=== PATIENT | male | born 1945 | race Caucasian/White ===

== ENCOUNTER 2022-08-05 23:45 | Inpatient (IN) | payer OTHER ==
[~2022-08-05] VITALS: Ht 170.2 cm; Wt 86.6 kg
[2022-08-06 00:52] LABS: HEMATOCRIT. 27.2 % (42.0-52.0); HEMOGLOBIN. 9.7 g/dL (14.0-18.0); MEAN CORPUSCULAR VOLUME 95.5 fL (80.0-94.0); MEAN PLATELET VOLUME 7.1 fl (7.4-10.4); PLATELET 409 x1000/uL (130-400); RED BLOOD CELL COUNT 2.85 mill/uL (4.7-6.1); RED CELL DISTRIBUTION WIDTH 13.1 % (11.6-14.6)
[2022-08-06 01:02] LABS: CHLORIDE 91 mEq/L (98-107)
[2022-08-06] MEDS ORDERED: KCL 20MEQ/100ML X 2 FOR TOTAL KCL 40MEQ/200ML IV SCH (01:45)
[2022-08-06] MEDS ORDERED: POTASSIUM CHLORIDE INJ 40 MEQ in DEXT 5% WATER 250 ML IV ONE (01:45)
[2022-08-06 01:49] LABS: PLATELET ESTIMATE SLIGHTLY INCREASED
[2022-08-06] MEDS: KCL 20MEQ/100ML X 2 FOR TOTAL KCL 40MEQ/200ML IV SCH ×2 (09:02→11:21)
[2022-08-06 15:15] VITALS: BP 138/60
[2022-08-06] MEDS ORDERED: ONDANSETRON HCL 4MG/2ML INJ IV PRN (17:15)
[2022-08-06] MEDS ORDERED: ACETAMINOPHEN 325MG TABLET PO PRN (17:15)
[2022-08-06 20:00] VITALS: BP 90/53
[2022-08-07] VITALS: BP 129/28
[2022-08-07 04:00] VITALS: BP 123/42
[2022-08-07 08:00] VITALS: BP 106/44
[2022-08-07 12:00] VITALS: BP 114/48
[2022-08-07] MEDS: SODIUM CHLORIDE 0.9% 1,000 ML IV SCH (14:15)
[2022-08-07 16:00] VITALS: BP 114/54
[2022-08-07 21:50] LABS: CLARITY URINE CLEAR (CLEAR); COLOR URINE YELLOW (YELLOW); KETONES URINE NEGATIVE (NEGATIVE); LEUKOCYTE ESTERASE URINE TRACE (NEGATIVE); NITRITE URINE NEGATIVE (NEGATIVE); OCCULT BLOOD URINE TRACE (NEGATIVE); PROTEIN URINE NEGATIVE (NEGATIVE); SPECIFIC GRAVITY URINE 1.007 (1.005-1.030); UROBILINOGEN URINE 0.2 E.U./dL (0.2-1.0)
[2022-08-08 07:58] LABS: BASOPHILS % 1.4 % (0.0-2.0); EOSINOPHILS % 4.7 % (0.0-5.0); HEMATOCRIT. 23.9 % (42.0-52.0); HEMOGLOBIN. 8.2 g/dL (14.0-18.0); LYMPHOCYTES % 10.4 % (20.0-50.0); MEAN CORPUSCULAR HEMOGLOBIN 33.1 pg (28.0-32.0); MEAN CORPUSCULAR VOLUME 96.3 fL (80.0-94.0); MEAN PLATELET VOLUME 7.7 fl (7.4-10.4); MONOCYTES % 12.7 % (2.0-8.0); NEUTROPHILS % 70.8 % (40.0-76.0); PLATELET 260 x1000/uL (130-400); RED BLOOD CELL COUNT 2.48 mill/uL (4.7-6.1); RED CELL DISTRIBUTION WIDTH 13.1 % (11.6-14.6)
[2022-08-08 08:00] VITALS: BP 125/50
[2022-08-08] MEDS: KCL 20MEQ/100ML X 2 FOR TOTAL KCL 40MEQ/200ML IV SCH ×2 (10:41→12:32)
[2022-08-08] MEDS: SODIUM CHLORIDE 0.9% 1,000 ML IV SCH (10:41)
[2022-08-08 10:44] LABS: PHOSPHORUS 4.6 mg/dL (2.5-4.9)
[2022-08-08] MEDS ORDERED: POTASSIUM CHLORIDE INJ 40 MEQ in DEXT 5% WATER 250 ML IV ONE (11:00)
[2022-08-08 12:00] VITALS: BP 115/60
[2022-08-08 16:00] VITALS: BP 127/61
[2022-08-08 20:00] VITALS: BP 127/48
[2022-08-08] MEDS: EPOETIN ALFA-EPBX 4,000 UNIT/ML VIAL SUBCUT SCH (20:58)
[2022-08-09] VITALS: BP 126/55
[2022-08-09] MEDS: SODIUM CHLORIDE 0.9% 1,000 ML IV SCH ×2 (03:50→19:45)
[2022-08-09 04:00] VITALS: BP 134/62
[2022-08-09 06:53] LABS: BASOPHILS % 1.2 % (0.0-2.0); EOSINOPHILS % 5.4 % (0.0-5.0); HEMOGLOBIN. 8.1 g/dL (14.0-18.0); LYMPHOCYTES % 12.1 % (20.0-50.0); MEAN CORPUSCULAR HEMOGLOBIN 33.9 pg (28.0-32.0); MEAN CORPUSCULAR VOLUME 96.4 fL (80.0-94.0); MONOCYTES % 13.2 % (2.0-8.0); NEUTROPHILS % 68.1 % (40.0-76.0); PLATELET 262 x1000/uL (130-400); RED BLOOD CELL COUNT 2.38 mill/uL (4.7-6.1); RED CELL DISTRIBUTION WIDTH 12.9 % (11.6-14.6)
[2022-08-09 07:13] LABS: PHOSPHORUS 3.6 mg/dL (2.5-4.9)
[2022-08-09 08:00] VITALS: BP 146/40
[2022-08-09] MEDS ORDERED: POTASSIUM CHLORIDE 20MEQ TABLET SR PO NR (09:15)
[2022-08-09 12:00] VITALS: BP 129/65
[2022-08-09 16:00] VITALS: BP 125/72
[2022-08-09 20:00] VITALS: BP 121/45
[2022-08-10] VITALS: BP 134/62
[2022-08-10 04:00] VITALS: BP 137/64
[2022-08-10 08:00] VITALS: BP 132/64
[2022-08-10 12:00] VITALS: BP 118/58
[2022-08-10 16:00] VITALS: BP 144/61
[2022-08-10] MEDS: SODIUM CHLORIDE 0.9% 1,000 ML IV SCH (18:15)
[2022-08-10 20:00] VITALS: BP 130/62
[2022-08-11] VITALS (8 sets, daily range): BP systolic 125–143; BP diastolic 53–66
[2022-08-11 09:08] LABS: ANTI-NUCLEAR ANTIBODIES DIRECT Negative (Negative)
[2022-08-11 11:40] LABS: BASOPHILS % 1.7 % (0.0-2.0); EOSINOPHILS % 6.5 % (0.0-5.0); HEMATOCRIT. 26.1 % (42.0-52.0); LYMPHOCYTES % 13.1 % (20.0-50.0); MEAN CORPUSCULAR HEMOGLOBIN 33.4 pg (28.0-32.0); MEAN CORPUSCULAR VOLUME 96.6 fL (80.0-94.0); MEAN PLATELET VOLUME 7.2 fl (7.4-10.4); MONOCYTES % 11.7 % (2.0-8.0); PLATELET 284 x1000/uL (130-400); RED BLOOD CELL COUNT 2.71 mill/uL (4.7-6.1); RED CELL DISTRIBUTION WIDTH 12.9 % (11.6-14.6)
[2022-08-11 11:47] LABS: INR 1.1; PARTIAL THROMBOPLASTIN TIME 25.4 sec (23.4-31.0); PROTHROMBIN TIME 11.7 sec (9.6-11.0)
[2022-08-11] MEDS ORDERED: IODIXANOL 320MG/ML 100 ML BOTTLE IV ONE (11:52)
[2022-08-11] MEDS ORDERED: LIDOCAINE HCL 1% 50ML VIAL (10MG/ML) ONE (11:52)
[2022-08-11] MEDS ORDERED: GENTAMICIN/NS IRRIGATION 500 ML IR ONE (12:01)
[2022-08-11] MEDS ORDERED: GENTAMICIN SULF 40MG/ML 2ML VIAL ONE (12:01)
[2022-08-11] MEDS: SODIUM CHLORIDE 0.9% 1,000 ML IV SCH (13:07)
[2022-08-11] MEDS ORDERED: PROPOFOL 10MG/ML 100ML 200 ML IV ONE (13:40)
[2022-08-11] MEDS ORDERED: FENTANYL CITRATE/PF 50MCG/ML 2ML VIAL ONE (14:11)
[2022-08-11] MEDS ORDERED: MIDAZOLAM HCL 2 MG/2 ML VIAL ONE (14:11)
[2022-08-11] MEDS ORDERED: LIDOCAINE HCL 2% 5ML SYRINGE IV ONE (14:27)
[2022-08-11] MEDS ORDERED: CEFAZOLIN SODIUM 1000MG/VIAL ONE ×2 (14:51)
[2022-08-11] MEDS ORDERED: GLYCOPYRROLATE 0.2 MG/ML 2ML VIAL ONE (14:52)
[2022-08-11] MEDS ORDERED: HYDROCODONE/ACETAMINOPHEN 5/325MG TABLET PO PRN (16:45)
[2022-08-11] MEDS ORDERED: NALOXONE HCL 0.4MG/ML VIAL IV PRN (17:00)
[2022-08-11] MEDS: EPOETIN ALFA-EPBX 4,000 UNIT/ML VIAL SUBCUT SCH (20:19)
[2022-08-12 00:05] VITALS: BP 122/51
[2022-08-12 04:00] VITALS: BP 134/56
[2022-08-12] MEDS: SODIUM CHLORIDE 0.9% 1,000 ML IV SCH (06:44)
[2022-08-12 07:06] LABS: HEMATOCRIT. 27.8 % (42.0-52.0); HEMOGLOBIN. 9.4 g/dL (14.0-18.0); MEAN CORPUSCULAR HEMOGLOBIN 31.5 pg (28.0-32.0); MEAN CORPUSCULAR VOLUME 93.2 fL (80.0-94.0); MEAN PLATELET VOLUME 7.4 fl (7.4-10.4); PLATELET 225 x1000/uL (130-400); RED BLOOD CELL COUNT 2.98 mill/uL (4.7-6.1); RED CELL DISTRIBUTION WIDTH 16.3 % (11.6-14.6)
[2022-08-12 08:00] VITALS: BP 138/69
[2022-08-12] MEDS ORDERED: POTASSIUM CHLORIDE 20MEQ TABLET SR PO SCH (09:30)
[2022-08-12 10:29] LABS: PLATELET ESTIMATE NORMAL
[2022-08-12 12:00] VITALS: BP 123/59
[2022-08-12 16:00] VITALS: BP 128/59
[2022-08-12 20:02] VITALS: BP 122/74
[2022-08-13 00:05] VITALS: BP 140/65
[2022-08-13] MEDS: SODIUM CHLORIDE 0.9% 1,000 ML IV SCH (03:45)
[2022-08-13 08:00] VITALS: BP 129/68
[2022-08-13 12:00] VITALS: BP 127/69
[2022-08-13 16:00] VITALS: BP 130/55
[2022-08-13 20:00] VITALS: BP 120/35
[2022-08-13] MEDS: EPOETIN ALFA-EPBX 4,000 UNIT/ML VIAL SUBCUT SCH (21:05)
[2022-08-14] VITALS: BP 165/69
[2022-08-14 04:00] VITALS: BP 132/45
[2022-08-14 06:21] LABS: HEMATOCRIT. 25.3 % (42.0-52.0); HEMOGLOBIN. 8.9 g/dL (14.0-18.0); MEAN CORPUSCULAR HEMOGLOBIN 32.5 pg (28.0-32.0); MEAN CORPUSCULAR VOLUME 92.2 fL (80.0-94.0); PLATELET 212 x1000/uL (130-400); RED BLOOD CELL COUNT 2.75 mill/uL (4.7-6.1); RED CELL DISTRIBUTION WIDTH 15.6 % (11.6-14.6)
[2022-08-14 08:00] VITALS: BP 146/79
[2022-08-14] MEDS ORDERED: POTASSIUM CHLORIDE 20MEQ TABLET SR PO NR (08:00)
[2022-08-14] MEDS: MAGNESIUM OXIDE 400MG TABLET PO SCH (09:00)
[2022-08-14 12:00] VITALS: BP 132/59
[2022-08-14 15:28] LABS: PLATELET ESTIMATE NORMAL
[2022-08-14 16:00] VITALS: BP 130/60
[2022-08-14 20:00] VITALS: BP 129/65
[2022-08-14] MEDS: CEPHALEXIN 250MG CAPSULE PO SCH (23:37)
[2022-08-15] VITALS: BP 124/69
[2022-08-15] MEDS: CEPHALEXIN 250MG CAPSULE PO SCH ×4 (05:55→23:48)
[2022-08-15 07:55] VITALS: BP 144/71
[2022-08-15] MEDS: MAGNESIUM OXIDE 400MG TABLET PO SCH (09:06)
[2022-08-15 11:36] VITALS: BP 148/81
[2022-08-15 16:00] VITALS: BP 140/70
[2022-08-15 20:38] VITALS: BP 113/42
[2022-08-16 00:34] VITALS: BP 151/73
[2022-08-16 04:00] VITALS: BP 122/64
[2022-08-16] MEDS: CEPHALEXIN 250MG CAPSULE PO SCH ×3 (05:16→17:24)
[2022-08-16 08:00] VITALS: BP 136/65
[2022-08-16] MEDS: MAGNESIUM OXIDE 400MG TABLET PO SCH (09:17)
[2022-08-16 12:00] VITALS: BP 126/47
[2022-08-16 16:00] VITALS: BP 137/56
[2022-08-16 20:00] VITALS: BP 127/82
[2022-08-17 00:06] VITALS: BP 127/60
[2022-08-17 04:00] VITALS: BP 118/73
[2022-08-17] MEDS: CEPHALEXIN 250MG CAPSULE PO SCH ×3 (05:27→12:36)
[2022-08-17 08:00] VITALS: BP 136/73
[2022-08-17] MEDS: MAGNESIUM OXIDE 400MG TABLET PO SCH (09:06)
[2022-08-17 10:38] VITALS: BP 136/73
[2022-08-17 12:00] VITALS: BP 131/73
== END 2022-08-17 14:30 | disposition home or self-care (01) | DRG 242 ==
LOC: ER 23:45 → 7WST 08-06 01:54 → EDBEDREQTM 08-06 02:02 → EDBEDREQ 08-06 02:02
PROVIDERS: ADMIT Internal Medicine; ATTEND Internal Medicine
PROC: 0JH606Z Insertion of Pacemaker, Dual Chamber into Chest Subcutaneous Tissue and Fascia, Open Approach (ICD-10-PCS; principal; 2022-08-11)
PROC: 02H63JZ Insertion of Pacemaker Lead into Right Atrium, Percutaneous Approach (ICD-10-PCS; 2022-08-11)
PROC: 02HK3JZ Insertion of Pacemaker Lead into Right Ventricle, Percutaneous Approach (ICD-10-PCS; 2022-08-11)
PROC: B517YZZ Fluoroscopy of Left Subclavian Vein using Other Contrast (ICD-10-PCS; 2022-08-11)
DX: I44.2 Atrioventricular block, complete (principal); N17.0 Acute kidney failure with tubular necrosis; E87.1 Hypo-osmolality and hyponatremia; I12.0 Hypertensive chronic kidney disease with stage 5 chronic kidney disease or end stage renal disease; N18.5 Chronic kidney disease, stage 5; I49.5 Sick sinus syndrome; R09.02 Hypoxemia; D64.9 Anemia, unspecified; Z20.822 Contact with and (suspected) exposure to COVID-19; E66.9 Obesity, unspecified; E87.6 Hypokalemia; Z91.199 Patient's noncompliance with other medical treatment and regimen due to unspecified reason; Z91.15 Patient's noncompliance with renal dialysis; Z68.29 Body mass index [BMI] 29.0-29.9, adult; Z95.0 Presence of cardiac pacemaker
CPT/HCPCS: 33208; 36415; 71045; 75820; 76770; 80048; 80053; 81003; 82962; 83735; 83880; 84100; 84484; 85025; 86038; 86160; 86850; 86900; 86920; 87106; 87426; 93005; 93306; 97162; 97165; 97530; 99285; A4565; C1769; C1785; C1893; C1898; J0690; J0885; J1580; J1644; J2250; J2704; J3010; J3480; J3490; J7030; J7060; L3670; P9016; Q9967